=== PATIENT | female | born 1980 | race Caucasian/White ===

== ENCOUNTER 2018-05-16 17:59 | Emergency (ER) | payer BC ==
--- OUTSIDE RECORDS SUMMARY | 2018-05-16 18:01 | XMS REPORT | Continuity of Care Document ---
:1980 Author Organization Interface Problems Problem Status Onset Classification Date Comments Source Date Reported Acute Diagnosis 05/01/2016 [facility] sinusitis 6 Acute Problem 05/01/2016 [facility] Sinusitis Medications Medication Details Route Status Patient Ordering Order Source Instructions Provider Date Amoxicillin 875 MG amoxicillin Active [facility] Oral Tablet 875 mg tablet Take 1 tablet(s) every 12 hours by oral route for 10 days. Azithromycin 250 MG azithromycin Active [facility] Oral Tablet 250 mg tablet Ciprofloxacin 500 ciprofloxacin Active [facility] MG Oral Tablet 500 mg tablet Codeine Phosphate 2 codeine 10 Active [facility] MG/ML / Guaifenesin mg-guaifenesin 20 MG/ML Oral 100 mg/5 mL Solution oral liquid Estradiol 2 MG Oral estradiol 2 mg Active [facility] Tablet tablet letrozole 2.5 MG letrozole 2.5 Active [facility] Oral Tablet mg tablet norethindrone norethindrone Active [facility] acetate 5 MG Oral acetate 5 mg Tablet tablet 0.5 ML Ovidrel 250 Active [facility] choriogonadotropin mcg/0.5 mL siobhan 0.5 MG/ML subcutaneous Prefilled Syringe syringe [Ovidrel] Prednisone 20 MG prednisone 20 Active [facility] Oral Tablet mg tablet Take 1 tablet(s) twice a day by oral route for 5 days. 200 ACTUAT Ventolin HFA Active [facility] Albuterol 0.09 90 MG/ACTUAT Metered mcg/actuation Dose Inhaler aerosol [Ventolin] inhaler Allergies, Adverse Reactions, Alerts Substance Category Reaction Severity Reaction Status Date Comments Source type Reported NKDA Allergy to [facility] substance 6 Immunizations Immunization Date Given Site Status Last Updated Comments Source Results Order Results Value Reference Date Interpretation Comments Source Name Range Vital Signs Vital Sign Value Date Comments Source Diastolic (mm Hg) 82 05/01/2016 [facility] Height 62 05/01/2016 [facility] Systolic (mm Hg) 122 05/01/2016 [facility] Weight 145 05/01/2016 [facility] Encounters Location Location Encounter Encounter Reason Attending ADM DC Status Source Details Type Number For Provider Date Date Visit [place] - Kavya [id number] Kavya 05/01 [facility] Sammy, [id number] Sammy /2016 - PA-C: [id number] [id number] [facility] [place] [address] , Ph. Procedures Procedure Code Date Perfomer Comments Source
--- NOTE | 2018-05-16 19:46 | EDPHYS ---
Physician Documentation [facility] Name: Gene Holcomb Age: 37 yrs Sex: Female : 1980 Arrival Date: 05/16/2018 Time: 18:01 Bed 9 Private MD: ED Physician Tyler Barney HPI: 05/16 20:00 This 37 yrs old Female presents to ER via Ambulatory with complaints of WRIST snw INJURY. 20:00 Onset: The symptoms/episode began/occurred suddenly, 3 day(s) ago, and became snw persistent. Associated signs and symptoms: The patient has no apparent associated signs or symptoms. The patient has not experienced similar symptoms in the past. The patient has been recently seen by a physician: a general surgeon. outpatient x-ray performed, + fracture of 5th metatcarpal, will need splint. 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 - Social history:: Smoking status: Patient/guardian denies using tobacco. - Ebola Screening: : No symptoms or risks identified at this time. ROS: 19:59 Constitutional: Negative for fever, chills, and weight loss, Eyes: Negative for injury, snw pain, redness, and discharge, ENT: Negative for injury, pain, and discharge, Neck: Negative for injury, pain, and swelling, Cardiovascular: Negative for chest pain, palpitations, and edema, Respiratory: Negative for shortness of breath, cough, wheezing, and pleuritic chest pain, Abdomen/GI: Negative for abdominal pain, nausea, vomiting, diarrhea, and constipation, Back: Negative for injury and pain, : Negative for injury, bleeding, discharge, and swelling, Skin: Negative for injury, rash, and discoloration, Neuro: Negative for headache, weakness, numbness, tingling, and seizure. 19:59 MS/extremity: Positive for injury or acute deformity, contusion, decreased range of motion, ecchymosis, pain, swelling, tenderness, of the left hand. Exam: 19:58 Constitutional: This is a well developed, well nourished patient who is awake, alert, snw and in no acute distress. Head/Face: Normocephalic, atraumatic. Eyes: Pupils equal round and reactive to light, extra-ocular motions intact. Lids and lashes normal. Conjunctiva and sclera are non-icteric and not injected. Cornea within normal limits. Periorbital areas with no swelling, redness, or edema. ENT: Nares patent. No nasal discharge, no septal abnormalities noted. Tympanic membranes are normal and external auditory canals are clear. Oropharynx with no redness, swelling, or masses, exudates, or evidence of obstruction, uvula midline. Mucous membranes moist. Neck: Trachea midline, no thyromegaly or masses palpated, and no cervical lymphadenopathy. Supple, full range of motion without nuchal rigidity, or vertebral point tenderness. No Meningismus. Chest/axilla: Normal chest wall appearance and motion. Nontender with no deformity. No lesions are appreciated. Cardiovascular: Regular rate and rhythm with a normal S1 and S2. No gallops, murmurs, or rubs. Normal PMI, no JVD. No pulse deficits. Respiratory: Lungs have equal breath sounds bilaterally, clear to auscultation and percussion. No rales, rhonchi or wheezes noted. No increased work of breathing, no retractions or nasal flaring. Abdomen/GI: Soft, non-tender, with normal bowel sounds. No distension or tympany. No guarding or rebound. No evidence of tenderness throughout. Back: No spinal tenderness. No costovertebral tenderness. Full range of motion. Skin: Warm, dry with normal turgor. Normal color with no rashes, no lesions, and no evidence of cellulitis. Neuro: Awake and alert, GCS 15, oriented to person, place, time, and situation. Cranial nerves II-XII grossly intact. Motor strength 5/5 in all extremities. Sensory grossly intact. Cerebellar exam normal. Normal gait. Psych: Awake, alert, with orientation to person, place and time. Behavior, mood, and affect are within normal limits. 19:58 Musculoskeletal/extremity: Extremities: grossly normal except: noted in the left hand: contusion, decreased ROM, swelling, tenderness, Circulation is intact in all extremities. Sensation intact. Vital Signs: 18:34 BP 122 / 89; Pulse 61; Resp 16 S; Pulse Ox 100% on R/A; Weight 66.68 kg (R); Height 5 jl7 ft. 2 in. (157.48 cm) (R); Pain 6/10; 18:34 Body Mass Index 26.89 (66.68 kg, 157.48 cm) jl7 Procedures: 19:58 Splinting: Splint applied to left wrist using Orthoglass splint, applied by nurse. snw Examined by me, post splint application: neurovascular intact, 2+ distal pulses palpable, brisk capillary refill noted, Patient tolerated well. MDM: 18:50 Patient medically screened. snw 19:46 Data reviewed: vital signs, nurses notes. Data interpreted: Pulse oximetry: on room air snw is 100 %. Interpretation: normal. Counseling: I had a detailed discussion with the patient and/or guardian regarding: the historical points, exam findings, and any diagnostic results supporting the discharge/admit diagnosis, the presence of at least one elevated blood pressure reading (>120/80) during this emergency department visit, radiology results, the need for outpatient follow up, to return to the emergency department if symptoms worsen or persist or if there are any questions or concerns that arise at home. Special discussion: Based on the history and exam findings, there is no indication for further emergent testing or inpatient evaluation. I discussed with the patient/guardian the need to see the orthopedic surgeon for further evaluation of the symptoms. 05/16 19:17 Order name: Ulnar Gutter splint; Complete Time: 19:40 snw Administered Medications: No medications were administered Disposition: 05/17 11:38 Co-signature as Attending Physician, Tyler Barney MD I agree with the assessment and norma plan of care. Disposition: 05/16/18 19:46 Discharged to Home. Impression: Unspecified fracture of fifth metacarpal bone, left hand. - Condition is Stable. - Discharge Instructions: Cast or Splint Care, Adult, Metacarpal Fracture, Cryotherapy. - Prescriptions for Diclofenac Sodium 75 mg Oral Tablet Sustained Release - take 1 tablet by ORAL route 2 times per day; 30 tablet. orphenadrine citrate 100 mg Oral Tablet Sustained Release - take 1 tablet by ORAL route 2 times per day As needed; 20 tablet. - Work release form, Medication Reconciliation Form, Thank You Letter, Antibiotic Education, Prescription Opioid Use form. - Follow up: Private Physician; When: 2 - 3 days; Reason: Recheck today's complaints, Continuance of care, Re-evaluation by your physician. Follow up: Emergency Department; When: As needed; Reason: Worsening of condition. Signatures: Tyler Barney MD MD cha Therrien, Shelly, CUT OFF SAW TENDER METAL-C CUT OFF SAW TENDER METAL-Csnw Reece Beck RN RN la1 Reanna Heard RN RN jl7 Corrections: (The following items were deleted from the chart) 05/16 19:47 19:46 05/16/2018 19:46 Discharged to Home. Impression: Unspecified fracture of fifth snw metacarpal bone, right hand. Condition is Stable. Discharge Instructions: Cast or Splint Care, Adult, Metacarpal Fracture, Cryotherapy. Prescriptions for Diclofenac Sodium 75 mg Oral Tablet Sustained Release - take 1 tablet by ORAL route 2 times per day; 30 tablet, orphenadrine citrate 100 mg Oral Tablet Sustained Release - take 1 tablet by ORAL route 2 times per day As needed; 20 tablet. and Forms are Medication Reconciliation Form, Thank You Letter, Antibiotic Education, Prescription Opioid Use. Follow up: Private Physician; When: 2 - 3 days; Reason: Recheck today's complaints, Continuance of care, Re-evaluation by your physician. Follow up: Emergency Department; When: As needed; Reason: Worsening of condition. snw 19:53 19:47 05/16/2018 19:46 Discharged to Home. Impression: Unspecified fracture of fifth la1 metacarpal bone, left hand. Condition is Stable. Discharge Instructions: Cast or Splint Care, Adult, Metacarpal Fracture, Cryotherapy. Prescriptions for Diclofenac Sodium 75 mg Oral Tablet Sustained Release - take 1 tablet by ORAL route 2 times per day; 30 tablet, orphenadrine citrate 100 mg Oral Tablet Sustained Release - take 1 tablet by ORAL route 2 times per day As needed; 20 tablet. and Forms are Medication Reconciliation Form, Thank You Letter, Antibiotic Education, Prescription Opioid Use. Follow up: Private Physician; When: 2 - 3 days; Reason: Recheck today's complaints, Continuance of care, Re-evaluation by your physician. Follow up: Emergency Department; When: As needed; Reason: Worsening of condition. snw
--- NOTE | 2018-05-16 19:46 | ER ---
Nurse's Notes [facility] Name: Gene Holcomb Age: 37 yrs Sex: Female : 1980 Arrival Date: 05/16/2018 Time: 18:01 Bed 9 Private MD: Diagnosis: Unspecified fracture of fifth metacarpal bone, left hand Presentation: 05/16 18:28 Presenting complaint: Patient states: Dr. Giraldo sent me to have my left pinky and jl7 middle fingers splinted, my dog jumped on me and bent both finger back. Had x-rays done and there is a broken bone in the pinky. Transition of care: patient was not received from another setting of care. Onset of symptoms was May 14, 2016. Risk Assessment: Do you want to hurt yourself or someone else? Patient reports no desire to harm self or others. Initial Sepsis Screen: Does the patient meet any 2 criteria? No. Patient's initial sepsis screen is negative. Does the patient have a suspected source of infection? No. Patient's initial sepsis screen is negative. Care prior to arrival: None. 18:28 Method Of Arrival: Ambulatory [facility] 18:28 Acuity: HUYEN 4 jl7 Triage Assessment: 18:32 General: Appears in no apparent distress. uncomfortable, Behavior is calm, cooperative, jl7 appropriate for age. Pain: Complains of pain in left pinky Pain does not radiate. Pain currently is 6 out of 10 on a pain scale. Neuro: Level of Consciousness is awake, alert, obeys commands, Oriented to person, place, time, situation. Cardiovascular: Patient's skin is warm and dry. Respiratory: Airway is patent Respiratory effort is even, unlabored, Respiratory pattern is regular, symmetrical. Derm: Skin is pink, warm \T\ dry. Musculoskeletal: Abdelrahman bandage noted to left wrist, pinky and ring finger. 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 - Social history:: Smoking status: Patient/guardian denies using tobacco. - Ebola Screening: : No symptoms or risks identified at this time. Screenin:49 Abuse screen: Denies threats or abuse. Denies injuries from another. Nutritional iw screening: No deficits noted. Tuberculosis screening: No symptoms or risk factors identified. Fall Risk None identified. Assessment: 18:49 General: Appears in no apparent distress. Behavior is calm, cooperative. Pain: iw Complains of pain in left hand. Neuro: Level of Consciousness is awake, alert, obeys commands. Cardiovascular: Patient's skin is warm and dry. Derm: Skin is pink, warm \T\ dry. normal. Musculoskeletal: Range of motion: limited in left wrist. 19:40 Reassessment: Patient appears in no apparent distress at this time. No changes from la1 previously documented assessment. Patient and/or family updated on plan of care and expected duration. Pain level reassessed. Vital Signs: 18:34 BP 122 / 89; Pulse 61; Resp 16 S; Pulse Ox 100% on R/A; Weight 66.68 kg (R); Height 5 jl7 ft. 2 in. (157.48 cm) (R); Pain 6/10; 18:34 Body Mass Index 26.89 (66.68 kg, 157.48 cm) jl7 ED Course: 18:01 Patient arrived in ED. tw3 18:30 Triage completed. jl7 18:34 Arm band placed on right wrist. jl7 18:49 Yasir He, TOM is Primary Nurse. hj 18:49 No provider procedures requiring assistance completed. Patient did not have IV access iw during this emergency room visit. 18:50 Rossana England FNP-C is [facility]. snw 18:50 Tyler Barney MD is Attending Physician. snw 19:28 Orthoglass splint: Ulnar gutter/Boxer splint applied on left forearm. oe 19:40 Call light in reach. la1 Administered Medications: No medications were administered Outcome: 19:46 Discharge ordered by . snw 19:53 Discharged to home ambulatory. la1 19:53 Condition: stable 19:53 Discharge instructions given to patient, Instructed on discharge instructions, follow up and referral plans. Demonstrated understanding of instructions, follow-up care. 19:53 Patient left the ED. la1 Signatures: Rossana England FNP-C FNP-Stacyw Karen Mc, RN RN Reece Law, RN RN la1 Yasir He, RN RN Bladimir Galeas Jahala, RN RN jl7 Marilee Connell 3
== END 2018-05-16 19:53 | disposition home or self-care (01) ==
LOC: ER 17:59
PROC: 2W3DX1Z Immobilization of Left Lower Arm using Splint (ICD-10-PCS; principal; 2018-05-16)
DX: S62.307A Unspecified fracture of fifth metacarpal bone, left hand, initial encounter for closed fracture (principal); Z98.82 Breast implant status
CPT/HCPCS: 99282

== ENCOUNTER 2018-05-27 10:00 | Day surgery (SDC) | payer BC ==
[2018-05-26 16:58] LABS: Absolute Lymphocytes (CBC) 1.7 K/uL (0.7-4.9); Absolute Monocytes 0.6 K/uL (0.1-1.3); Absolute Neutrophil 4.3 K/uL (1.8-8.0); Basophils % 0.4 % (0-1.3); Eosinophils % 2.6 % (0-4.4); MCH 32.1 pg (27.0-35.0); MCV 95.5 fL (80-100); MPV 10.9 fL (7.6-11.3); Monocytes % 8.3 % (3.3-12.3)
[~2018-05-27 10:00] MED LIST: CEFAZOLIN/SWI 1gm 1 GM/10 ML SYR IVP SCH
--- OUTSIDE RECORDS SUMMARY | 2018-05-27 10:02 | XMS REPORT | Continuity of Care Document ---
[...] Provider Date Date Visit [place] - Kavya [id number] Kavya 05/01 [facility] Sammy, [id number] Sammy /2016 - PA-C: [id number] [id number] [facility] [place] [address] , Ph. Procedures Procedure Code Date Perfomer Comments Source
[2018-05-27] MEDS ORDERED: CEFAZOLIN/SWI 1gm 1 GM/10 ML SYR ONE (10:30)
[2018-05-27] MEDS ORDERED: Ringers Lactate 1,000 ML IV ONE (10:30)
[2018-05-27] MEDS ORDERED: KETOROLAC 30 MG/ML INJ ONE (11:29)
[2018-05-27] MEDS ORDERED: PROPOFOL 200 MG/20 ML VIAL IV ONE (11:29)
[2018-05-27] MEDS ORDERED: MIDAZOLAM HCL 2 MG/2 ML INJ ONE (11:29)
[2018-05-27] MEDS ORDERED: FENTANYL CITR 100 MCG/2 ML ONE (11:29)
--- NOTE | 2018-05-27 13:08 | RAD REPORT ---
EXAM DESCRIPTION: RAD - Hand Left 2 View - 05/27/2018 12:54 pm CLINICAL HISTORY: Fifth metacarpal fracture. FINDINGS: Three fluoroscopic spot images are submitted. Open reduction and internal fixation of a fr acture involving the fifth metacarpal neck is noted. A pin has been placed. Fluoroscopy time 30 seconds. The exam was performed by Dr. Orozco
[2018-05-27] MEDS: MEPERIDINE HCL 50 MG/ML AMP ONE ×4 (13:15→13:44)
[2018-05-27] MEDS: MORPHINE 4 MG/ML SYR ONE ×2 (13:27→13:32)
[2018-05-27] MEDS ORDERED: HYDROCODONE/APAP 5/325 MG TAB PO ONE (14:20)
[2018-05-27] MEDS ORDERED: HYDROCODONE/APAP 5/325 MG TAB ONE (14:24)
--- NOTE | 2018-05-28 00:22 | OP ---
Date of Procedure: 05/27/2018 Surgeon: Zcah Orozco MD Preoperative Diagnosis: Left fifth metacarpal fracture with malrotation. Postoperative Diagnosis: Left fifth metacarpal fracture with malrotation. Procedure Performed: Left fifth metacarpal closed reduction with percutaneous pin fixation. Estimated Blood Loss: Less than 3 cc. Complications: There were no complications. Pathology Specimen: There were no pathology specimen sent. Indications For Operation: Ms. Holcomb is a 37-year-old female who unfortunately injured her left chavez nd 2 weeks ago. She came to see me in the office only yesterday and had an ulnar gutter splint with the fingers extended. She also had x-rays which demonstrated a fracture of the fifth metacarpal. Th e ulnar gutter splint was taken off and she does have a finger extension to 0; however, with flexion, she has an obvious fairly significant rotation of the fifth digit toward the scaphoid. She does hav e some overlap of the contralateral side, but it is definitely asymmetric. All risks, benefits, and alternatives to the procedure had been discussed with her. She states she understands things as pres ented and wishes to proceed. Description Of Procedure: The patient was taken to the operating room and placed in supine position. General anesthesia was obtained by the staff. Following this, a well-padded tourniquet was placed on superior left arm, however, it was not used throughout the case. Her left upper extremity was the n prepped and draped in usual sterile fashion. Following this, C-arm was brought in and a reduction maneuver was performed. It is able to reduce somewhat, however the reduction is somewhat difficult b ased on its age of 2 weeks as well as the distal nature of the fracture and she also has an enchondro ma of the proximal phalanx making direct reduction using the proximal phalanx inadvisable for the ris k of fracture. Selection of pin required quite a bit of judgment. Typically, in these cases, I will use two 3.5 crossed pins placed at the lateral recess to avoid the joint. However, this fracture wa s a little too distal and difficult to reduce. Otherwise, I would gently use a 4.5 pin in direct axi al fashion. However, this pin felt not to have enough strength to aid in the joystick type reduction which would need to be performed. Therefore, decision was made to proceed with a 6.2 pin which is l arger than I would like, but I feel that would definitely give us the best chance of getting a good r eduction. This was placed through one entry port at the distal dorsal aspect of the metacarpal. As this progresses down near the fracture site, closed reduction maneuver was performed as well as the u se of the pin as a joystick and the pin was then placed down the shaft. This appears to have a very nice reduction on x-ray and she now appears to have symmetric overlap of the fifth digit on both hand s. The pin was then bent and she was placed in extremely well-padded sterile dressing as well as an ulnar gutter splint. She is awakened and taken to the recovery room in good condition. There were n o complications. /COREY Voice ID: [id number] Report ID: [id number]
== END 2018-05-27 15:00 | disposition home health service (06) ==
LOC: OR 10:00
PROVIDERS: ATTEND Orthopaedic Surgery
PROC: 0PSQ34Z Reposition Left Metacarpal with Internal Fixation Device, Percutaneous Approach (ICD-10-PCS; principal; 2018-05-27 11:30)
DX: S62.307A Unspecified fracture of fifth metacarpal bone, left hand, initial encounter for closed fracture (principal)
CPT/HCPCS: 36415; 81025; 85025; J0690; J2175; J2250; J3010